=== PATIENT | male | born 1970 | race Caucasian/White ===

== ENCOUNTER 2016-11-01 15:13 | Emergency (ER) | payer MEDICAID | END 2016-11-01 16:21 | disposition home or self-care (01) | LOC: D.ER 15:13 | DX: M70.52 Other bursitis of knee, left knee (principal); Y93.89 Activity, other specified ==

== ENCOUNTER 2016-11-06 13:18 | Emergency (ER) | payer MEDICAID | END 2016-11-06 16:40 | disposition home or self-care (01) | LOC: D.ER 13:18 | DX: M17.12 Unilateral primary osteoarthritis, left knee (principal) ==

== ENCOUNTER → 2016-11-20 12:31 | Outpatient (CLI) | payer MEDICAID ==
[~2016-11-20 12:31] MED LIST: PERCOCET 5-3251 TAB PO; TORADOL10 MG PO
== END | disposition home or self-care (01) ==
LOC: D.MRI 12:31
DX: M25.562 Pain in left knee (principal)

== ENCOUNTER 2016-12-02 06:26 | Day surgery (SDC) | payer MEDICAID ==
[2016-12-02 08:28] VITALS: BP 137/93; BMI 42.4
[2016-12-02] MEDS ORDERED: PERCOCET 5-3251 TAB PO (14:09)
[2016-12-02] MEDS ORDERED: TORADOL10 MG PO (14:10)
--- NOTE | 2016-12-02 17:39 | OP ---
PATIENT NAME: LORI CABALLERO MEDICAL RECORD: [id number] :66 LOCATION:[facility] ADMISSION DATE: SURGEON: BRANDON SOLORZANO DO DATE OF OPERATION: 12/02/2016 PROCEDURE PERFORMED: Left knee arthroscopy, partial medial meniscectomy and medial femoral condyle chondroplasty and a lateral patellar release. PREOPERATIVE DIAGNOSES: Patellofemoral syndrome, medial meniscal tear. POSTOPERATIVE DIAGNOSES: Medial meniscal tear, patellofemoral syndrome, and medial femoral condyle grade IV chondromalacia as well as loose bodies in the joint, cartilage bodies from the chondromalacia. INDICATIONS: Mr. Caballero is a 46-year-old male who presented to my office with several months of left knee pain. He said it was locking, popping, and catching. He said he was tired of doing this and came to see me. He got an MRI, which did show the medial meniscal tear and also some lateral patellar tilt, which did cause him some pain going up and down stairs. Having explained this to him that the medial meniscal tear could be chewed out and he could ride back to his life, he wanted to have the procedure of the knee arthroscopy done. SURGEON: Brandon Solorzano DO DESCRIPTION OF THE PROCEDURE: Mr. Caballeor was taken to the operative suite, placed in supine position, given general anesthetic and LMA was placed. Once this was done, the left leg was prepped and draped in sterile fashion. Timeout was performed. The left leg seemed to be the correct leg using the correct patient. Once this was done, the knee was flexed to 90 degrees and a 4 mL of 0.5% Marcaine with 1% epinephrine was injected into the proposed portal sites, first on the lateral side and then on the medial side, 4 mL each, 8 total. Once this was done, the lateral portal was established using 11 blade and then a scope was entered into the knee. Loose bodies were seen right away in the suprapatellar pouch as well as the lateral gutter. They were flushed out of the pouch. In the medial pouch, no loose bodies were seen. However, when the knee was flexed down, in the medial compartment was noted to have the large chondromalacia grade IV on the medial femoral condyle. This was seen and the medial portal was established with an 11 blade after a spinal needle was placed into the proposed portal site. Having establishing the portal with the trocar and a 11 blade shaver was placed into the knee and any loose cartilage pieces were shaved away from the medial femoral condyle performing the chondroplasty. The knee then had a valgus stress and then opened up the joint and the meniscal tear was seen, was chewed first with an upbiter and then with the shaver smoothed out. Once this was done, a probe was placed into the knee joint and the medial meniscus was probed not to have seen anymore tears. The knee was then flexed and the ACL was probed and seemed to be in good position and not loose. They were placed behind the lateral femoral condyle rather and the leg was [id number] and the lateral joint line was entered. The lateral joint line, there were some loose bodies seen in it. The lateral meniscus was probed and not seemed to have any tears. Shaver was then entered in the lateral compartment and the loose bodies were removed with shaver. Once this was done, the knee was brought into an extension and the scope was switched over to the medial portal and a burner was used to do the lateral retinacular release on the patella. Prior to this, the knee was flexed and the patella was seen to be tracking laterally. There was a small chondromalacia spot on the trochlea. The OPERATIVE REPORT [id number] LORI CABALLERO release was done and then the same view was done through the lateral portal and the patella seemed to track better into the trochlear groove. Once this was done, the excess fluid was suctioned out of the knee and the scope was withdrawn and the portal sites were closed with a single inverted interrupted 4-0 Monocryl. Steri-Strips were then placed over each portal. Adaptic, 4 x 4s, ABD, Webril and Josué wrap were then placed on the knee and DIANNA hose up to the knee was then placed. The patient was awakened and taken to recovery in stable condition. The tourniquet was up for approximately 17 minutes during the procedure. TRANSINT:[id number] Voice Confirmation ID: [id number] DOCUMENT ID: [id number] BRANDON SOLORZANO DO at [id number] CC: [id number] DICTATION DATE: 12/02/16 2600 EXCAVATOR BACKHOE OPERATOR: 12/02/16 1620 [facility] [address] [id number]
--- NOTE | 2016-12-02 20:29 | NUR ---
1600 TO ROOM FROM RR PT C/O PAIN OF [address] MILES 1610 DR MILES IN ROOM TALKING WITH PT 1630 BLOCK DONE IN ROOM FOR PAIN CONTROL PLACE IN A KNEE IMMOBILIZER 1700 WANTING TO GO HOME, UP TO BATHROOM WITH CRUTCHES DID GOOD 1730 IV DC WITH CATHER TIP INTACT DR MILES CALLED OK TO DISCHANGE , PT STATED PAIN WAS 5, LEG WAS FEEL SOMEWHAT NUMB WANTING TO LEAVE ,AWAKE AND ALERT X 4 AT TIME
== END 2016-12-02 17:45 | disposition home or self-care (01) ==
LOC: D.OPS 06:26 → D.PAN 09:10 → D.OPS 10:00 → D.PAN 10:00 → D.OPS 12:00 → D.PAN 12:00 → D.OPS 17:45
DX: S83.242A Other tear of medial meniscus, current injury, left knee, initial encounter (principal); M25.562 Pain in left knee; M94.262 Chondromalacia, left knee; Z01.812 Encounter for preprocedural laboratory examination

== ENCOUNTER 2019-05-04 13:48 | Emergency (ER) | payer MEDICAID ==
[~2019-05-04] VITALS: Ht 177.8 cm; Wt 147.7 kg
[2019-05-04 13:55] VITALS: Ht 177.8 cm; Wt 147.7 kg
[2019-05-04] MEDS ORDERED: VOLTAREN75 MG PO (15:01)
[2019-05-04] MEDS ORDERED: AMOXICILLIN500 M1 PO (15:01)
[2019-05-04 15:27] VITALS: BP 160/81
== END 2019-05-04 15:28 | disposition home or self-care (01) ==
LOC: D.ER 13:48
DX: K04.7 Periapical abscess without sinus (principal); K08.89 Other specified disorders of teeth and supporting structures

== ENCOUNTER → 2020-07-04 11:30 | Outpatient (CLI) | payer BC ==
[2019-05-04 13:55] VITALS: BMI 46.7
[~2020-07-04 11:30] MED LIST changes: +AMOXICILLIN500 M1 PO; +VOLTAREN75 MG PO
== END | disposition home or self-care (01) ==
LOC: D.MRI 11:00
PROVIDERS: ATTEND Nurse Practitioner Family
DX: M23.307 Other meniscus derangements, unspecified meniscus, left knee (principal)

== ENCOUNTER → 2020-07-19 18:07 | Outpatient (CLI) | payer BC ==
[2019-05-04 13:55] VITALS: BMI 46.7
== END | disposition home or self-care (01) ==
LOC: D.LABREF 18:07
PROVIDERS: ATTEND Orthopaedic Surgery
DX: M17.12 Unilateral primary osteoarthritis, left knee (principal)